=== PATIENT | female | born 1990 ===

== ENCOUNTER 2019-09-10 02:07 | Emergency (ER) | payer SELFPAY ==
[~2019-09-10] VITALS: Ht 167.6 cm; Wt 92.0 kg
[2019-09-10 02:10] VITALS: BP 107/58
== END 2019-09-10 06:26 | disposition left against medical advice (07) ==
LOC: ED 06:23
DX: R50.9 Fever, unspecified (principal); Z53.21 Procedure and treatment not carried out due to patient leaving prior to being seen by health care provider

== ENCOUNTER 2019-09-10 02:33 | Inpatient (IN) | payer BC ==
[~2019-09-10] VITALS: Ht 167.6 cm; Wt 93.2 kg
[2019-09-10 02:45] VITALS: BP 106/57
[2019-09-10 03:11] LABS: MICROSCOPIC INDICATED
[2019-09-10] MEDS ORDERED: LACTATED RINGERS 1,000 ML IVBOLUS ONE (03:30)
[2019-09-10 03:59] LABS: MEAN CORPUSCULAR HEMOGLOBIN 30.7 pg (27.0-34.8); MEAN CORPUSCULAR HGB CONC 33.5 g/dL (32.4-35.8); MEAN CORPUSCULAR VOLUME 91.7 fL (80-100); MEAN PLATELET VOLUME 8.9 fL (7.4-10.4); PLATELET COUNT 164 x10^3/uL (130-400); RED BLOOD COUNT 3.22 x10^6/uL (3.82-5.3); RED CELL DISTRIBUTION WIDTH 13.4 % (9.6-15.2)
[2019-09-10 04:08] LABS: ALBUMIN 2.5 g/dL (3.4-5.0); ANION GAP 10 mmol/L (5-15); CALCIUM 8.6 mg/dL (8.5-10.1); CHLORIDE 108 mmol/L (98-107)
[2019-09-10 04:11] LABS: ALANINE AMINOTRANSFERASE 14 U/L (12-78); ALKALINE PHOSPHATASE 67 U/L (45-117); BILIRUBIN,TOTAL 0.5 mg/dL (0.2-1.0); CREATININE 0.82 mg/dL (0.55-1.02); TOTAL PROTEIN 6.7 g/dL (6.4-8.2)
[2019-09-10] MEDS ORDERED: CEFTRIAXONE 500 MG in DEXTROSE 5% 50 ML IV SCH (04:30)
[2019-09-10] MEDS ORDERED: CALCIUM CARBONATE 500 MG TAB.CHEW PO PRN (04:30)
[2019-09-10] MEDS ORDERED: ONDANSETRON 2MG/ML, 2ML IVPush PRN (04:30)
[2019-09-10 04:47] LABS: MD YES
[2019-09-10 04:49] LABS: <PLATELET ESTIMATE> ADEQUATE; <PLT MORPHOLOGY> NORMAL PLT MORPH; ANISOCYTOSIS 1+; BAND#(MANUAL) 0.33 x10^3/uL; BANDS%(MANUAL) 2 % (0-7); HYPOCHROMIA 1+; LYMPH#(MANUAL) 0.33 x10^3/uL (1-3.4); LYMPHS% (MANUAL) 2 % (22-44); MONOS#(MANUAL) 1.31 x10^3/uL (0.3-2.7); MONOS% (MANUAL) 8 % (2-9); SEG#(MANUAL) 14.43 x10^3/uL (1.8-6.8); SEGS% (MANUAL) 88 % (42-75)
[2019-09-10] MEDS: LACTATED RINGERS 1,000 ML IV SCH ×5 (05:11→21:41)
[2019-09-10] MEDS ORDERED: ACETAMINOPHEN 325 MG TABLET ONE ×4 (08:12→20:10)
[2019-09-10] MEDS: ACETAMINOPHEN 325 MG TABLET PO PRN ×4 (08:14→20:15)
[2019-09-10] MEDS ORDERED: POTASSIUM CHLORIDE 20 MEQ TAB.ER.PRT PO STA (10:26)
[2019-09-10] MEDS ORDERED: POTASSIUM CHLORIDE 20 MEQ TAB.ER.PRT PO ONE (11:00)
[2019-09-10] MEDS ORDERED: POTASSIUM CHLORIDE 20 MEQ TAB.ER.PRT PO SCH (17:00)
[2019-09-10 21:22] LABS: BASOPHILS % (AUTO) 0 % (0-1); EOSINOPHILS # (AUTO) 0.01 x10^3/uL (0-0.4); EOSINOPHILS % (AUTO) 0 % (1-7); LYMPHOCYTES # (AUTO) 0.59 x10^3/uL (1-3.4); LYMPHOCYTES % (AUTO) 5 % (22-44); MD NO; MEAN CORPUSCULAR HEMOGLOBIN 30.7 pg (27.0-34.8); MEAN CORPUSCULAR HGB CONC 33.5 g/dL (32.4-35.8); MEAN CORPUSCULAR VOLUME 91.6 fL (80-100); MEAN PLATELET VOLUME 8.8 fL (7.4-10.4); MONOCYTES # (AUTO) 0.77 x10^3/uL (0.2-0.8); MONOCYTES % (AUTO) 6 % (2-9); NEUTROPHILS # (AUTO) 11.16 x10^3/uL (1.8-6.8); NEUTROPHILS % (AUTO) 89 % (42-75); PLATELET COUNT 136 x10^3/uL (130-400); RED BLOOD COUNT 2.88 x10^6/uL (3.82-5.3); RED CELL DISTRIBUTION WIDTH 12.9 % (9.6-15.2)
[2019-09-10 21:30] LABS: ALANINE AMINOTRANSFERASE 15 U/L (12-78); ALBUMIN 2.1 g/dL (3.4-5.0); ANION GAP 7 mmol/L (5-15); CALCIUM 8.3 mg/dL (8.5-10.1); CHLORIDE 111 mmol/L (98-107)
[2019-09-10 21:33] LABS: ALKALINE PHOSPHATASE 68 U/L (45-117); BILIRUBIN,TOTAL 0.4 mg/dL (0.2-1.0)
[2019-09-10] MEDS ORDERED: CEFTRIAXONE IV SCH (23:00)
[2019-09-10] MEDS ORDERED: DEXTROSE 5% IV SCH (23:00)
[2019-09-10] MEDS ORDERED: CEFTRIAXONE PMX 1GM/50ML 50 ML IV ONE (23:00)
[2019-09-11] MEDS ORDERED: ACETAMINOPHEN 325 MG TABLET ONE ×4 (00:04→16:48)
[2019-09-11] MEDS: ACETAMINOPHEN 325 MG TABLET PO PRN ×4 (00:07→16:50)
[2019-09-11 00:08] VITALS: BP_SYST 107; BP_DIAS 51; BP_DIAS 66
[2019-09-11] MEDS: LACTATED RINGERS 1,000 ML IV SCH ×3 (03:56→19:34)
[2019-09-11 06:05] LABS: CHLORIDE 111 mmol/L (98-107)
[2019-09-11 06:08] LABS: BASOPHILS % (AUTO) 0 % (0-1); EOSINOPHILS # (AUTO) 0.14 x10^3/uL (0-0.4); EOSINOPHILS % (AUTO) 1 % (1-7); LYMPHOCYTES # (AUTO) 0.59 x10^3/uL (1-3.4); LYMPHOCYTES % (AUTO) 6 % (22-44); MD NO; MEAN CORPUSCULAR HEMOGLOBIN 30.9 pg (27.0-34.8); MEAN CORPUSCULAR HGB CONC 33.7 g/dL (32.4-35.8); MEAN CORPUSCULAR VOLUME 91.7 fL (80-100); MEAN PLATELET VOLUME 8.7 fL (7.4-10.4); MONOCYTES # (AUTO) 0.56 x10^3/uL (0.2-0.8); MONOCYTES % (AUTO) 5 % (2-9); NEUTROPHILS # (AUTO) 9.47 x10^3/uL (1.8-6.8); NEUTROPHILS % (AUTO) 88 % (42-75); PLATELET COUNT 131 x10^3/uL (130-400); RED BLOOD COUNT 2.81 x10^6/uL (3.82-5.3); RED CELL DISTRIBUTION WIDTH 13.2 % (9.6-15.2)
[2019-09-11 06:17] LABS: % IRON SATURATION 4 % (20-55); ALANINE AMINOTRANSFERASE 14 U/L (12-78); ALKALINE PHOSPHATASE 70 U/L (45-117); ANION GAP 11 mmol/L (5-15); BILIRUBIN,TOTAL 0.4 mg/dL (0.2-1.0); CALCIUM 8.1 mg/dL (8.5-10.1); CREATININE 0.51 mg/dL (0.55-1.02); FREE T4 (FREE THYROXINE) 1.11 ng/dL (0.76-1.46); IRON LEVEL 10 mcg/dL (50-170); TOTAL IRON BINDING CAPACITY 283 mcg/dL (250-450); TOTAL PROTEIN 5.9 g/dL (6.4-8.2)
[2019-09-11] MEDS ORDERED: MAGNESIUM SULFATE PMX 2GM/50ML 50 ML IV ONE (07:30)
[2019-09-11] MEDS ORDERED: POTASSIUM CHLORIDE 20 MEQ TAB.ER.PRT PO ONE (07:30)
[2019-09-11] MEDS ORDERED: PRENATAL VIT/IRON/FA 1 EACH TABLET ONE (08:50)
[2019-09-11] MEDS ORDERED: DOCUSATE 100 MG CAPSULE ONE ×2 (08:50→17:56)
[2019-09-11] MEDS: PRENATAL VIT/IRON/FA 1 EACH TABLET PO SCH (08:51)
[2019-09-11] MEDS: CEFTRIAXONE PMX 2GM/50ML 50 ML IV SCH (14:06)
[2019-09-11] MEDS ORDERED: FERROUS SULFATE 325 MG TABLET PO SCH (16:30)
[2019-09-11] MEDS ORDERED: FERROUS SULFATE 325 MG TABLET ONE (17:57)
[2019-09-11] MEDS: DOCUSATE 100 MG CAPSULE PO SCH (17:58)
[2019-09-12] MEDS: LACTATED RINGERS 1,000 ML IV SCH (02:49)
[2019-09-12 04:38] LABS: BASOPHILS # (AUTO) 0.01 x10^3/uL (0-0.1); BASOPHILS % (AUTO) 0 % (0-1); EOSINOPHILS # (AUTO) 0.05 x10^3/uL (0-0.4); EOSINOPHILS % (AUTO) 1 % (1-7); LYMPHOCYTES # (AUTO) 0.65 x10^3/uL (1-3.4); LYMPHOCYTES % (AUTO) 8 % (22-44); MD NO; MEAN CORPUSCULAR HEMOGLOBIN 30.5 pg (27.0-34.8); MEAN CORPUSCULAR HGB CONC 33.4 g/dL (32.4-35.8); MEAN CORPUSCULAR VOLUME 91.4 fL (80-100); MEAN PLATELET VOLUME 8.3 fL (7.4-10.4); MONOCYTES # (AUTO) 0.56 x10^3/uL (0.2-0.8); MONOCYTES % (AUTO) 7 % (2-9); NEUTROPHILS % (AUTO) 84 % (42-75); PLATELET COUNT 164 x10^3/uL (130-400); RED BLOOD COUNT 3.08 x10^6/uL (3.82-5.3); RED CELL DISTRIBUTION WIDTH 13.3 % (9.6-15.2)
[2019-09-12 04:50] LABS: ANION GAP 12 mmol/L (5-15); CALCIUM 8.6 mg/dL (8.5-10.1); CHLORIDE 109 mmol/L (98-107)
[2019-09-12 04:53] LABS: % IRON SATURATION 10 % (20-55); CREATININE 0.63 mg/dL (0.55-1.02); IRON LEVEL 31 mcg/dL (50-170); TOTAL IRON BINDING CAPACITY 318 mcg/dL (250-450)
[2019-09-12] MEDS ORDERED: MAGNESIUM SULFATE PMX 4GM/100M 100 ML IV ONE (07:30)
[2019-09-12] MEDS ORDERED: PRENATAL VIT/IRON/FA 1 EACH TABLET ONE (07:53)
[2019-09-12] MEDS ORDERED: DOCUSATE 100 MG CAPSULE ONE ×2 (07:54→21:07)
[2019-09-12 08:10] VITALS: BP 108/67
[2019-09-12] MEDS: SODIUM CHLORIDE 0.9% 1,000 ML IV SCH ×2 (08:13→17:45)
[2019-09-12] MEDS: PRENATAL VIT/IRON/FA 1 EACH TABLET PO SCH (08:33)
[2019-09-12] MEDS: DOCUSATE 100 MG CAPSULE PO SCH ×2 (08:33→21:17)
[2019-09-12] MEDS ORDERED: POTASSIUM CHLORIDE 20 MEQ TAB.ER.PRT PO ONE (09:00)
[2019-09-12] MEDS ORDERED: ACETAMINOPHEN 325 MG TABLET ONE (11:52)
[2019-09-12] MEDS: ACETAMINOPHEN 325 MG TABLET PO PRN (11:55)
[2019-09-12] MEDS: metroNIDAZOLE 250 MG TABLET PO SCH ×2 (12:55→21:16)
[2019-09-12] MEDS: CEFTRIAXONE PMX 2GM/50ML 50 ML IV SCH (13:46)
[2019-09-13] MEDS: metroNIDAZOLE 250 MG TABLET PO SCH ×2 (04:06→12:36)
[2019-09-13] MEDS: SODIUM CHLORIDE 0.9% 1,000 ML IV SCH (04:08)
[2019-09-13 05:13] LABS: BASOPHILS # (AUTO) 0.02 x10^3/uL (0-0.1); BASOPHILS % (AUTO) 0 % (0-1); EOSINOPHILS # (AUTO) 0.16 x10^3/uL (0-0.4); EOSINOPHILS % (AUTO) 2 % (1-7); LYMPHOCYTES # (AUTO) 1.06 x10^3/uL (1-3.4); LYMPHOCYTES % (AUTO) 14 % (22-44); MD NO; MEAN CORPUSCULAR HEMOGLOBIN 30.6 pg (27.0-34.8); MEAN CORPUSCULAR HGB CONC 33.8 g/dL (32.4-35.8); MEAN CORPUSCULAR VOLUME 90.5 fL (80-100); MEAN PLATELET VOLUME 8.1 fL (7.4-10.4); MONOCYTES # (AUTO) 0.81 x10^3/uL (0.2-0.8); MONOCYTES % (AUTO) 11 % (2-9); NEUTROPHILS # (AUTO) 5.43 x10^3/uL (1.8-6.8); NEUTROPHILS % (AUTO) 73 % (42-75); PLATELET COUNT 188 x10^3/uL (130-400); RED BLOOD COUNT 3.02 x10^6/uL (3.82-5.3)
[2019-09-13 05:22] LABS: ALANINE AMINOTRANSFERASE 24 U/L (12-78); ALBUMIN 2.1 g/dL (3.4-5.0); ANION GAP 9 mmol/L (5-15); CALCIUM 8.2 mg/dL (8.5-10.1); CHLORIDE 113 mmol/L (98-107); CREATININE 0.54 mg/dL (0.55-1.02)
[2019-09-13 05:24] LABS: ALKALINE PHOSPHATASE 88 U/L (45-117); BILIRUBIN,TOTAL 0.3 mg/dL (0.2-1.0); TOTAL PROTEIN 6.3 g/dL (6.4-8.2)
[2019-09-13] MEDS ORDERED: CEPHALEXIN 500 MG CAPSULE PO SCH (07:30)
[2019-09-13] MEDS ORDERED: ACETAMINOPHEN 325 MG TABLET ONE (09:02)
[2019-09-13] MEDS ORDERED: DOCUSATE 100 MG CAPSULE ONE (09:02)
[2019-09-13] MEDS ORDERED: PRENATAL VIT/IRON/FA 1 EACH TABLET ONE (09:02)
[2019-09-13] MEDS: ACETAMINOPHEN 325 MG TABLET PO PRN (09:05)
[2019-09-13] MEDS: DOCUSATE 100 MG CAPSULE PO SCH (09:05)
[2019-09-13] MEDS: PRENATAL VIT/IRON/FA 1 EACH TABLET PO SCH (09:06)
[2019-09-13 09:09] VITALS: BP 114/67
== END 2019-09-13 15:30 | disposition home or self-care (01) | DRG 831 ==
LOC: LDOP 02:33 → LDIP 04:27
PROVIDERS: ADMIT Obstetrics & Gynecology; ATTEND Obstetrics & Gynecology
DX: O98.812 Other maternal infectious and parasitic diseases complicating pregnancy, second trimester (principal); A41.9 Sepsis, unspecified organism; R65.21 Severe sepsis with septic shock; O23.02 Infections of kidney in pregnancy, second trimester; D50.9 Iron deficiency anemia, unspecified; E83.42 Hypomagnesemia; E87.6 Hypokalemia; G47.00 Insomnia, unspecified; O99.012 Anemia complicating pregnancy, second trimester; O99.282 Endocrine, nutritional and metabolic diseases complicating pregnancy, second trimester; O99.352 Diseases of the nervous system complicating pregnancy, second trimester; Z3A.27 27 weeks gestation of pregnancy
CPT/HCPCS: 36415; 76770; 80048; 80053; 81001; 82728; 83540; 83550; 83605; 83735; 84439; 84443; 85025; 87040; 87077; 87086; 87186; G0378; J0696; J3475; J7030; J7120

== ENCOUNTER 2019-11-26 08:08 | Inpatient (IN) | payer BC ==
[~2019-11-26] VITALS: Ht 167.6 cm; Wt 98.6 kg
[2019-11-26] MEDS ORDERED: D5%-LACTATED RINGERS 1,000 ML IV SCH (08:29)
[2019-11-26] MEDS ORDERED: OXYTOCIN 30U/ 0.9% NaCL 500ML 500 ML IV ONE (08:29)
[2019-11-26] MEDS ORDERED: ONDANSETRON 2MG/ML, 2ML IVPush PRN (08:30)
[2019-11-26] MEDS ORDERED: FENTANYL PF 100 MCG/2ML IV PRN (08:30)
[2019-11-26] MEDS ORDERED: TERBUTALINE 1 MG/ML, 1ML IVPush PRN (08:30)
[2019-11-26] MEDS ORDERED: TERBUTALINE 1 MG/ML, 1ML SQ PRN (08:30)
[2019-11-26] MEDS ORDERED: FENTANYL PF 100 MCG/2ML IVPush PRN (08:30)
[2019-11-26] MEDS: LACTATED RINGERS 1,000 ML IV SCH ×3 (08:55→15:50)
[2019-11-26 08:56] VITALS: BP 124/76
[2019-11-26] MEDS ORDERED: PLEASE ENTER HEIGHT AND WEIGHT MC SCH (09:00)
[2019-11-26 09:06] LABS: BASOPHILS # (AUTO) 0.02 x10^3/uL (0-0.1); BASOPHILS % (AUTO) 0 % (0-1); EOSINOPHILS # (AUTO) 0.09 x10^3/uL (0-0.4); EOSINOPHILS % (AUTO) 1 % (1-7); LYMPHOCYTES % (AUTO) 11 % (22-44); MD NO; MEAN CORPUSCULAR HEMOGLOBIN 29.6 pg (27.0-34.8); MEAN CORPUSCULAR HGB CONC 34.2 g/dL (32.4-35.8); MEAN CORPUSCULAR VOLUME 86.6 fL (80-100); MEAN PLATELET VOLUME 9.1 fL (7.4-10.4); MONOCYTES # (AUTO) 0.52 x10^3/uL (0.2-0.8); MONOCYTES % (AUTO) 5 % (2-9); NEUTROPHILS # (AUTO) 9.28 x10^3/uL (1.8-6.8); NEUTROPHILS % (AUTO) 84 % (42-75); PLATELET COUNT 204 x10^3/uL (130-400); RED BLOOD COUNT 3.99 x10^6/uL (3.82-5.3); RED CELL DISTRIBUTION WIDTH 14.7 % (9.6-15.2)
[2019-11-26] MEDS ORDERED: NEWBORN KIT ONE ×2 (09:13→10:08)
[2019-11-26] MEDS ORDERED: BUPIVACAINE 0.25% ONE (09:40)
[2019-11-26] MEDS ORDERED: FENTANYL/BUPIV./NS/PF 250 ML EPIDCONT ONE (10:01)
[2019-11-26] MEDS ORDERED: OXYTOCIN 30U/ 0.9% NaCL 500ML 500 ML ONE ×2 (10:08→17:22)
[2019-11-26] MEDS ORDERED: MISOPROSTOL 200 MCG TABLET ONE (10:08)
[2019-11-26] MEDS ORDERED: LIDOCAINE 1%, 20ML ONE (10:08)
[2019-11-26] MEDS ORDERED: OXYTOCIN 30U/ 0.9% NaCL 500ML 500 ML IV SCH ×2 (16:51)
[2019-11-26] MEDS ORDERED: METHYLERGONOVINE 0.2 MG/ML IM PRN (17:00)
[2019-11-26] MEDS ORDERED: ONDANSETRON 2MG/ML, 2ML IV PRN (17:00)
[2019-11-26] MEDS ORDERED: OXYcodone/APAP 5/325MG TABLET PO PRN ×2 (17:00)
[2019-11-26] MEDS ORDERED: TRANEXAMIC ACID 100 MG/ML, 10ML IV ONE (17:00)
[2019-11-26] MEDS ORDERED: MISOPROSTOL 200 MCG TABLET PR PRN (17:00)
[2019-11-26] MEDS ORDERED: OXYTOCIN 10 UNITS/ML, 1ML IM PRN (17:00)
[2019-11-26] MEDS ORDERED: SIMETHICONE 80 MG CHEW TAB PO PRN (17:00)
[2019-11-26] MEDS ORDERED: ACETAMINOPHEN 325 MG TABLET PO PRN (17:00)
[2019-11-26] MEDS ORDERED: MAGNESIUM HYDROXIDE 8%, 30ML UDC PO PRN (17:00)
[2019-11-26] MEDS ORDERED: CALCIUM CARBONATE 500 MG TAB.CHEW PO PRN (17:00)
[2019-11-26] MEDS ORDERED: DOCUSATE 100 MG CAPSULE PO PRN (17:00)
[2019-11-26 19:10] VITALS: BP 114/77
[2019-11-26] MEDS: IBUPROFEN 600 MG TABLET PO PRN (20:20)
[2019-11-27 00:09] VITALS: BP 123/77
[2019-11-27 01:03] LABS: BASOPHILS # (AUTO) 0.03 x10^3/uL (0-0.1); BASOPHILS % (AUTO) 0 % (0-1); EOSINOPHILS # (AUTO) 0.05 x10^3/uL (0-0.4); EOSINOPHILS % (AUTO) 0 % (1-7); LYMPHOCYTES # (AUTO) 1.36 x10^3/uL (1-3.4); LYMPHOCYTES % (AUTO) 10 % (22-44); MD NO; MEAN CORPUSCULAR HEMOGLOBIN 29.3 pg (27.0-34.8); MEAN CORPUSCULAR HGB CONC 33.5 g/dL (32.4-35.8); MEAN CORPUSCULAR VOLUME 87.5 fL (80-100); MEAN PLATELET VOLUME 9.7 fL (7.4-10.4); MONOCYTES # (AUTO) 0.58 x10^3/uL (0.2-0.8); MONOCYTES % (AUTO) 4 % (2-9); NEUTROPHILS # (AUTO) 12.13 x10^3/uL (1.8-6.8); NEUTROPHILS % (AUTO) 86 % (42-75); PLATELET COUNT 188 x10^3/uL (130-400); RED BLOOD COUNT 3.49 x10^6/uL (3.82-5.3); RED CELL DISTRIBUTION WIDTH 14.9 % (9.6-15.2)
[2019-11-27 04:30] VITALS: BP 96/64
[2019-11-27] MEDS: IBUPROFEN 600 MG TABLET PO PRN (07:43)
[2019-11-27 08:15] VITALS: BP 116/81
[2019-11-27] MEDS ORDERED: PRENATAL VIT/IRON/FA 1 EACH TABLET PO SCH (09:00)
== END 2019-11-27 18:04 | disposition home or self-care (01) | DRG 807 ==
LOC: LDOP 08:08 → LDIP 08:38 → 2NW 18:32
PROVIDERS: ADMIT Obstetrics & Gynecology; ATTEND Obstetrics & Gynecology
PROC: 10E0XZZ Delivery of Products of Conception, External Approach (ICD-10-PCS; principal; 2019-11-26)
PROC: 3E0R3BZ Introduction of Anesthetic Agent into Spinal Canal, Percutaneous Approach (ICD-10-PCS; 2019-11-26)
PROC: 00HU33Z Insertion of Infusion Device into Spinal Canal, Percutaneous Approach (ICD-10-PCS; 2019-11-26)
DX: O80 Encounter for full-term uncomplicated delivery (principal); Z37.0 Single live birth; Z3A.38 38 weeks gestation of pregnancy
CPT/HCPCS: 36415; 85025; 86592; 86850; 86900; G0378; J2590; J7120